=== PATIENT | male | born 1985 | race African-American/Black ===

== ENCOUNTER 2017-05-23 22:20 | Emergency (ER) | payer OTHER ==
[~2017-05-23] VITALS: Ht 175.3 cm; Wt 66.2 kg
--- NOTE | 2017-05-23 22:28 | Emergency Room Report ---
History of Present Illness General Chief Complaint: To Be Triaged Source: Patient Present Illness HPI 31YOM walk-in with abd pain generalized for 3 weeks No focal pain Denies assoc nausea/vomiting, diarrhea Appetite is good Denies PMHx or PSHX Denies foreign travel, sick contacts Denies blood in stool, melena Attributes pain to heavy drinking of ETOH daily Allergies: Coded Allergies: No Known Allergies (Unverified , 05/23/17) Patient History Past Medical History: none Past Surgical History: none Pertinent Family History: none Social History: Reports: alcohol use, drug use, Denies: smoking Immunizations: UTD Reviewed Nursing Documentation: PMH: Agreed, PSxH: Agreed Review of Systems All Other Systems: negative except mentioned in HPI Physical Exam Sp02 EP Interpretation: reviewed, normal General Appearance: normal inspection, well appearing, no apparent distress, alert, GCS 15, non-toxic Head: normocephalic, atraumatic Eyes: bilateral eye PERRL, bilateral eye EOMI ENT: normal ENT inspection, hearing grossly normal, normal voice Neck: normal inspection, full range of motion, supple, no bony tend Respiratory: normal inspection, lungs clear, normal breath sounds, no respiratory distress, no retraction, no wheezing Cardiovascular #1: regular rate, rhythm, no edema Gastrointestinal: normal inspection, normal bowel sounds, non tender, soft, no guarding, no hernia Genitourinary: no CVA tenderness Musculoskeletal: normal inspection, back normal, normal range of motion, Pedro' s Sign negative Neurologic: normal inspection, alert, oriented x3, responsive, fiscal economist III-XII nml as tested, motor strength/tone normal, speech normal Psychiatric: normal inspection, judgement/insight normal, mood/affect normal Skin: normal inspection, normal color, no rash Lymphatic: normal inspection Medical Decision Making Diagnostic Impression: Primary Impression: Abdominal pain Qualified Codes: R10.84 - Generalized abdominal pain Additional Impressions: GUNNAR (acute kidney injury) Polysubstance abuse Alcohol abuse Gastritis Qualified Codes: K29.20 - Alcoholic gastritis without bleeding ER Course VSS. Afebrile No focal abd ttp on serial exam Improved with GI PO and IV cocktail Mild GUNNAR on labs Abd pain likely from ETOH abuse Was given IVF hydration for mild GUNNAR Utox + for PCP, meth, cocaine Advised against drug use Rx pepcid for gastritis - avoid ETOH PMD followup for GI referral if needed for worsening symptoms DC home Status: improved Disposition: HOME, SELF-CARE Scripts Famotidine (PEPCID) 20 Mg Tablet 20 MG ORAL BID for 7 Days, #14 TAB 0 Refills Prov: AURORA PRO M.D. 05/24/17 AURORA PRO M.D. May 23, 2017 22:28
[2017-05-23 22:35] VITALS: BP 131/81
[2017-05-23] MEDS ORDERED: NKM (22:37)
[2017-05-23] MEDS ORDERED: Mylanta II UD 30ml ORAL ONE (23:45)
[2017-05-23] MEDS ORDERED: Lidocaine 2% Visc 15ml soln ORAL ONE (23:45)
[2017-05-23] MEDS ORDERED: Famotidine 20 MG/ 2ML VIAL IVP ONE (23:45)
[2017-05-23 23:54] LABS: BASOPHILS % (AUTO) 1.1 % (0.0-2.0); EOSINOPHILS % (AUTO) 0.3 % (0.0-3.0); LYMPHOCYTES % (AUTO) 26.8 % (20.0-45.0); MEAN CORPUSCULAR HEMOGLOBIN 31.4 PG (27.0-31.0); MEAN CORPUSCULAR HGB CONC 34.4 G/DL (32.0-36.0); MEAN CORPUSCULAR VOLUME 91 FL (80-99); MEAN PLATELET VOLUME 7.8 FL (6.5-10.1); MONOCYTES % (AUTO) 7.4 % (1.0-10.0); NEUTROPHILS % (AUTO) 64.4 % (45.0-75.0); PLATELET COUNT 318 K/UL (150-450); RED CELL DISTRIBUTION WIDTH 12.1 % (11.6-14.8); WHITE BLOOD COUNT 6.9 K/UL (4.8-10.8)
[2017-05-23 23:56] LABS: KETONES,URINE NEGATIVE (NEGATIVE); NITRITE,URINE NEGATIVE (NEGATIVE); PH,URINE 5 (4.5-8.0); PROTEIN,URINE 3+ (NEGATIVE); UROBILINOGEN,URINE NORMAL MG/DL (0.0-1.0)
[2017-05-24 00:03] LABS: APPEARANCE,URINE SLIGHTLY CLOUDY; LEUKOCYTE ESTERASE ,URINE 3+ (NEGATIVE)
[2017-05-24 00:04] LABS: BACTERIA,URINE FEW /HPF; RBC,URINE TNTC /HPF (0 - 0); SQUAMOUS EPITHELIAL CELL,UR MODERATE /LPF (NONE/OCC); WBC,URINE TNTC /HPF (0 - 0)
[2017-05-24 00:05] LABS: MUCUS,URINE MANY /LPF (NONE/OCC)
[2017-05-24 00:14] LABS: ALBUMIN/GLOBULIN RATIO 1.3 (1.0-2.7); CALCIUM 9.9 mg/dL (8.6-10.2); CREATININE 1.5 mg/dL (0.7-1.2); GLOMERULAR FILTRATION RATE 54.2 mL/min (>60)
[2017-05-24] MEDS ORDERED: PEPCID20 MG ORAL (00:26)
[2017-05-24] MEDS ORDERED: cefTRIAXone 1 GM in NS 55 ML IVPB ONE (00:30)
[2017-05-24] MEDS ORDERED: Azithromycin 250mg tab ORAL ONE (00:30)
[2017-05-24 00:35] VITALS: BP 128/75
[2017-05-24 01:30] VITALS: BP 128/75
== END 2017-05-24 01:30 | disposition home or self-care (01) ==
LOC: EMR 22:45
DX: R10.9 Unspecified abdominal pain (principal); N17.9 Acute kidney failure, unspecified; F19.10 Other psychoactive substance abuse, uncomplicated; F10.10 Alcohol abuse, uncomplicated; K29.70 Gastritis, unspecified, without bleeding
CPT/HCPCS: 36415; 80053; 80300; 81003; 83690; 85025; 87086; 96361; 96374; 96375; 99284; J0696; Q0144; S0028